=== PATIENT | female | born 1985 | race Two or more races ===

== ENCOUNTER 2017-08-18 02:19 | Inpatient (IN) | payer OTHER ==
[2017-08-18] MEDS ORDERED: Lactated Ringer's 1,000 ML IV SCH ×2 (02:45)
[2017-08-18] MEDS ORDERED: AMPicillin 1 GM in Sodium Chloride 0.9% 100 ML IVPB SCH (02:45)
[2017-08-18] MEDS ORDERED: AMPicillin 2 GM in Sodium Chloride 0.9% 100 ML IVPB STA (02:45)
[2017-08-18] MEDS ORDERED: Penicillin G Potassium 5 MU in Sodium Chloride 0.9% 50 ML IVPB ONE (02:49)
--- NOTE | 2017-08-18 02:51 | OBHP ---
Datetime: 08/18/2017 02:45 IP Adm Impression: , intrauterine ; Active labor; Ruptured Membranes IP Admit Plan: Admit to unit Admit Comment, IP Provider: 31 y/o prsnets to l and d c/o srom 1:45 am. Pt reports uterine cont ractions +leaking fluid no vaginal bleeding good FM PMH none PSH none NKDA social Neg ROS Neg as per HPI VSS afebrile P/E see notes IUP 35 weeks SROM Admit IVF hydration routine labs adequate pelvis vertex presentation efw 6 lbs anticiapte Pelvic Type - PN: Adequate Extremities - PN: Normal Abdomen - PN: Normal Back - PN: Normal Breast - PN: Normal Lungs - PN: Normal Heart - PN: Normal Thyroid - PN: Normal Neurologic - PN: Normal HEENT - PN: Normal General - PN: Normal Weight - Estimated: 6 Presentation-Admit: Vertex FHR - Baseline A Provider: 145 Gestation - Est Wks by US: 35.0 Pool Provider: Positive Vital Signs Provider: Reviewed IP Chief Complaint: Uterine contractions; Suspected ruptured membranes NICHD Variability Prov Fetus A: Moderate 6-25bpm NICHD Accel Fetus A IP Provider: 10X10 FHR Category Provider Fetus A: Category I NICHD Decel Fetus A IP Provider: None Dilatation, Provider: 3 Effacement, Provider: 100 Station, Provider: -1 Genitourinary Exam: Normal DTRs - PN: Normal
[2017-08-18 02:53] VITALS: BMI 34.7
[2017-08-18] MEDS ORDERED: Lidocaine 1% Inj (20ml) ONE (03:20)
[2017-08-18] MEDS ORDERED: Oxytocin 30 UNITS in Sodium Chloride 0.9% 500 ML IV ONE (03:20)
[2017-08-18] MEDS ORDERED: Penicillin G 5 Million Unit Vial IVPB ONE (03:29)
[2017-08-18 03:30] LABS: BASO % 0.3 % (0.0-2.0); EOS # 0.1 K/uL (0.0-0.7); EOS % 0.5 % (0.0-4.0); HEMATOCRIT 38.4 % (34.0-47.0); LYMPH # 3.7 K/uL (1.0-4.3); LYMPH % 28.1 % (20.0-40.0); MEAN CELL VOLUME 83.4 fl (81.0-99.0); MEAN CORPUSCULAR HGB CONC 33.6 g/dL (33.0-37.0); MEAN PLATELET VOLUME 7.9 fl (7.2-11.7); MONO % 7.4 % (0.0-10.0); NEUT # 8.3 K/uL (1.8-7.0); NEUT % 63.7 % (50.0-75.0); NRBC % 0.2 % (0.0-0.0); RED CELL DISTRIBUTION WIDTH 13.6 % (11.5-14.5); WHITE BLOOD COUNT 13.1 K/uL (4.8-10.8)
[2017-08-18] MEDS ORDERED: Benzocaine/Menthol SPRAY TOP PRN ×2 (03:56→05:00)
[2017-08-18] MEDS ORDERED: Oxycodone/Acetaminophen 5/325 mg Tab PO PRN ×4 (03:56→05:00)
--- NOTE | 2017-08-18 04:16 | OBDS ---
MATERNAL INFORMATION Provider Comments: delivered live baby boy at 3:42 am the baby was bulb suctioned on the perineum th en transferred to maternal chest. The cord was clamped and cut 3 vessels noted. The placenta was deli noemi at 3:53 intact. The ebl was 100 cc, There was a first degree laceration which was repaired with 2.0 rapide. The mother tolerated the procedure well baby to nursery with of 9/9 weighing 2285g LABOR SUMMARY EDC: 09/19/2017 00:00 No. Babies in Womb: 1 VAGINAL DELIVERY Episiotomy: None Laceration Extension: First Degree Laceration Type: Vaginal Laceration Repair: Yes Sponge Count Correct: Yes Sharps Count Correct: Yes
[2017-08-19 06:13] LABS: HEMATOCRIT 34.8 % (34.0-47.0); MEAN CORPUSCULAR HEMOGLOBIN 27.9 pg (27.0-31.0); MEAN CORPUSCULAR HGB CONC 33.3 g/dL (33.0-37.0); RED CELL DISTRIBUTION WIDTH 13.7 % (11.5-14.5); WHITE BLOOD COUNT 11.2 K/uL (4.8-10.8)
--- NOTE | 2017-08-20 11:41 | OBPPN ---
Datetime: 08/20/2017 11:38 PP Pain Prov: Within normal limits PP Nausea Prov: Denies PP Flatus Prov: Yes PP Breasts Prov: Normal PP Heart Prov: Normal PP Lungs Prov: Normal PP Abdomen/Uterus Prov: Normal PP Lochia Prov: Normal PP Vulva/Perineum Prov: Normal PP CVA Tenderness Prov: Normal PP Extremities Prov: Normal PP Comments Phys Exam Prov: Fundus firm under umbilicus PP Impression Prov: Normal progression PP Plan Prov: Continue present management PP Progress Note Prov: Patient denies CP, no SOB, no N/V, tolerating PO diet,, ambulating/voiding we ll, mild lochia A/P PPD #2 1. Discharge today 2. Discharge instructions reivewed IP PP Procedures: None Vital Signs Provider PP: Reviewed; Within Normal Limits
--- NOTE | 2017-08-20 11:41 | OBDCSUM ---
Datetime: 08/20/2017 11:39 Discharged to, Provider: Home Follow up at, Provider: OB Disch Instr Activity: Normal activity Disch Instr Diet: Regular Discharge Instructions, Provider: Routine instructions given Discharge Diagnosis, Provider: Term Delivered Discharge Time: 08/20/2017 11:39 Follow up in weeks, Provider: 6 wks Disch Referrals: None Contraception discussed, Prov: Yes Disch Activity Restrictions: No exercising; No sexual activity; Nothing in vagina - [place], darron marinelli
[2017-08-20 18:31] VITALS: BP 105/52; PULSE 77; RESP 20; TEMP 98.7; O2SAT 99
== END 2017-08-20 13:34 | disposition home or self-care (01) | DRG 775 ==
LOC: H.EROB2 02:19 → H.L&D 02:45 → H.OB/GYN 05:10
PROVIDERS: ADMIT Obstetrics & Gynecology; ATTEND Obstetrics & Gynecology
PROC: 0HQ9XZZ Repair Perineum Skin, External Approach (ICD-10-PCS; principal; 2017-08-18)
PROC: 10E0XZZ Delivery of Products of Conception, External Approach (ICD-10-PCS; 2017-08-18)
PROC: 4A1HXCZ Monitoring of Products of Conception, Cardiac Rate, External Approach (ICD-10-PCS; 2017-08-18)
DX: O70.0 First degree perineal laceration during delivery (principal); Z37.0 Single live birth; Z3A.35 35 weeks gestation of pregnancy